=== PATIENT | male | born 1990 | race Two or more races ===

== ENCOUNTER 2017-12-31 07:25 | Outpatient (CLI) | payer OTHER ==
[~2017-12-31 07:25] MED LIST: BACTROBAN OINT22 GM TP
== END 2017-12-31 07:42 | disposition home or self-care (01) ==
LOC: LAB 07:25
DX: K40.90 Unilateral inguinal hernia, without obstruction or gangrene, not specified as recurrent (principal); N35.9 Urethral stricture, unspecified; Z13.1 Encounter for screening for diabetes mellitus; A64 Unspecified sexually transmitted disease

== ENCOUNTER 2018-08-05 11:53 | Outpatient (CLI) | payer OTHER | END 2018-08-05 12:06 | disposition home or self-care (01) | LOC: LAB 11:53 | DX: R05 Cough (principal); R50.9 Fever, unspecified ==

== ENCOUNTER 2020-03-04 06:10 | Day surgery (SDC) | payer OTHER | END 2020-03-04 20:15 | disposition home or self-care (01) | LOC: CIR.AMB 06:10 | PROVIDERS: ATTEND Specialist | DX: K40.90 Unilateral inguinal hernia, without obstruction or gangrene, not specified as recurrent (principal); Z20.828 Contact with and (suspected) exposure to other viral communicable diseases ==

== ENCOUNTER 2020-07-26 11:39 | Emergency (ER) | payer OTHER ==
[~2020-07-26] VITALS: Ht 170.2 cm; Wt 74.8 kg
== END 2020-07-26 17:19 | disposition home or self-care (01) ==
LOC: ER 11:39
DX: N39.0 Urinary tract infection, site not specified (principal)

== ENCOUNTER → 2022-10-06 | Outpatient (CLI) | payer OTHER | END | disposition home or self-care (01) | LOC: SONOGRAMA 07:52 | DX: R10.9 Unspecified abdominal pain (principal) ==

== ENCOUNTER 2023-08-20 10:06 | Outpatient (CLI) | payer OTHER | END 2023-08-20 10:08 | disposition home or self-care (01) | LOC: RAD 10:06 | DX: M54.50 Low back pain, unspecified (principal) ==

== ENCOUNTER 2024-10-05 07:46 | Outpatient (CLI) | payer OTHER | END 2024-10-05 08:00 | disposition home or self-care (01) | LOC: TOM 07:46 | DX: J34.2 Deviated nasal septum (principal); J32.8 Other chronic sinusitis ==

== ENCOUNTER 2025-03-04 08:50 | Day surgery (SDC) | payer OTHER ==
[2025-02-27 09:08] LABS: BASO % 1.0 % (0.1-1.2); EOS # 0.05 (0.04-0.54); EOS % 1.7 % (0.7-7.0); LYMPH # 1.00 (1.18-3.74); LYMPH % 33.9 % (19.3-53.1); MEAN PLATELET VOLUME 11.30 fl (9.4-12.4); MONO # 0.28 (0.24-0.82); MONO % 9.5 % (4.7-12.5); NEUT # 1.59 (1.56-6.13); NEUT % 53.9 % (34.0-71.1); RED CELL DISTRIBUTION WIDTH 12.4 % (11.6-14.4)
[2025-02-27 09:38] LABS: INR 0.96
[2025-02-27 09:47] VITALS: BP 109/65
[2025-02-27 10:05] LABS: URINE APPEARANCE Clear; URINE BILIRRUBIN Negative (NEGATIVE); URINE BLOOD Negative; URINE COLOR Yellow; URINE GLUCOSE Negative (NEGATIVE); URINE KETONE Negative (NEGATIVE); URINE LEUKOCYTE Negative; URINE NITRATE Negative; URINE PROTEIN Negative (NEGATIVE); URINE UROBILINOGEN 0.2 E.U./dl
[2025-02-27 10:18] LABS: ALT/SGPT 31.0 U/L (12-78); AST/SGOT 15.0 U/L (15-37); BILIRUBIN TOTAL 0.54 mg/dL (0.3-1.2); BUN CREA RATIO 12.0 (7.0-25.0); CREATININE SERUM 1.01 mg/dL (0.70-1.30); GFR 84.56; GLOBULINA 3.3 G/DL (2.4-3.5); GLUCOSE FASTING 90.0 mg/dL (65-100); OSMOLALITY SERUM 282.0 MOSM/KG (275-295)
[2025-02-27 10:28] LABS: URINE BACTERIA 0 uL (0.0-1933); URINE CAST 0.00 uL (0.0-1.40); URINE EPITHELIAL CELLS 0.1 uL (0.0-38.8); URINE RBC 0.1 uL (0.0-20.8); URINE WBC 0.4 uL (0.0-23.2)
[~2025-03-04] VITALS: Ht 152.4 cm; Wt 60.8 kg
[2025-03-04] MEDS ORDERED: OXYMETAZOLINE HCL 15 ML NASAL DROPS NASAL ONE (15:30)
[2025-03-04] MEDS ORDERED: CEFAZOLIN SODIUM 1,000 MG VIAL IV ONE (15:30)
[2025-03-04] MEDS ORDERED: LIDOCAINE HCL 1%/EPINEPHRINE 20ML VIAL IJ ONE (15:30)
[2025-03-04] MEDS ORDERED: HEMOSTATIC MATRIX 1 KIT KIT TOP ONE (17:30)
[2025-03-04] MEDS ORDERED: BACITRACIN 28.35 GM OINT.TUBE TOP ONE (17:30)
== END 2025-03-04 20:30 | disposition home or self-care (01) ==
LOC: CIR.AMB 08:50
PROVIDERS: ATTEND Otolaryngology
DX: J34.2 Deviated nasal septum (principal); J32.0 Chronic maxillary sinusitis; J34.3 Hypertrophy of nasal turbinates